=== PATIENT | male | born 1990 ===

== ENCOUNTER 2021-07-22 15:12 | Emergency (ER) | payer MEDICAID ==
[~2021-07-22] VITALS: Ht 185.4 cm; Wt 87.3 kg
[2021-07-22 15:34] VITALS: BP 149/106
[2021-07-22] MEDS ORDERED: BUPR1FIL3 SL (15:37)
[2021-07-22] MEDS ORDERED: SULF-261 PO (19:07)
== END 2021-07-22 19:33 | disposition left against medical advice (07) ==
LOC: EMS 15:15
DX: N50.82 Scrotal pain (principal); Z98.890 Other specified postprocedural states; F17.210 Nicotine dependence, cigarettes, uncomplicated
CPT/HCPCS: 76870; 99284; Z7502